=== PATIENT | male | born 1970 | race American Indian/Alaskan Native ===

== ENCOUNTER 2024-06-07 11:29 | Emergency (ER) | payer SELFPAY ==
[2024-06-07 11:31] VITALS: BP 120/78; PULSE 88; RESP 20; TEMP 36.8; O2SAT 90; BMI 22.3
--- NOTE | 2024-06-07 11:34 | ED.GENADULT ---
HPI - General Adult General Date Seen: 06/07/24 Chief complaint: Alcohol/Intoxication Stated complaint: ETOH Time Seen by Provider: 06/07/24 11:34 History of Present Illness HPI narrative: 53 yo M with h/o alcohol abuse, history of liver cirrhosis due to alcohol dependence, chronic hepatitis-C. And looks like his primary care provider is Dr. Cobb in the [facility] system. However most recent visit with her was over 2 years ago in March 2022. According to that no he at that time he was living in [facility] for alcohol dependence. Note indicates that he has cirrhosis and had been hospitalized somewhere in [place] in 2023 compensated cirrhosis with ascites requiring paracentesis. During that hospitalization he had an EGD that showed esophagitis and portal hypertensive gastropathy. In the past he had been on Lasix and spironolactone so he was restarted on Lasix and spironolactone after that visit in 2021. Lasix 20 mg every morning and spironolactone 25 mg every morning. Also omeprazole 20 mg every morning for gastritis. History per patient and from his alcohol treatment center staff is that he did go through treatment about 2 years ago. It sounds like his sobriety did not loss very long after treatment and has been drinking fairly heavily for 2 years since then. He initially says he drinks 1 pt of alcohol per day. Then when I asked again he does report somewhere between 2 and 3 pt per day. He has been drinking every day for the past couple of years. He is not taking his meds. He does want to stop and he called of his own accord last week. He went through an assessment last and was accepted for inpatient alcohol treatment to start today. He has been drinking heavily since then and actually was drinking up until 10:00 a.m. this morning, right before he went to treatment. When he arrived treatment he seemed confused and intoxicated. He apparently has had serious alcohol withdrawal in the past. He was hospitalized several years ago for for 5 days with what sounds like may have been delirium tremens. He was reporting significant hallucinations at that time. It does not sound like he has ever had alcohol withdrawal seizures. With concerned that he may develop serious withdrawal, his treatment program staff brought him here to the ER. He does not have any recent falls. No fever. No abdominal pain. He gets nauseous sometimes but is not currently nauseous. No swelling in his legs. Related Data Home Medications ?Medication ?Instructions ?Recorded ?Confirmed albuterol 90 mcg/actuation aerosol mcg inhalation 06/07/24 inhaler buspirone 15 mg tablet 15 mg PO BID 06/07/24 06/07/24 cetirizine 10 mg capsule (All Day 10 mg PO DAILY PRN 06/07/24 06/07/24 Allergy (cetirizine)) hydroxyzine HCl 25 mg tablet 25 mg PO Q6-8H PRN 06/07/24 06/07/24 Allergies Allergy/AdvReac Type Severity Reaction Status Date / Time No Known Drug Allergies Allergy Verified 06/07/24 11:36 Exam Narrative: Exam Narrative: Constitutional: Appears well-developed and well-nourished. He is awake and answers questions. Speech is very slurred and I have to ask him to repeat himself sometimes because it is difficult to understand him. He is rocking back gotten forth on the bed in behavior consistent with alcohol intoxication. HENT: Head: Atraumatic. Nose: Nose normal. Mouth/Throat: Oral mucosa is clear and moist. no trismus. Eyes: Conjunctivae normal. EOM normal. Pupils equal, round, and reactive to light. No scleral icterus. Neck: Normal range of motion. Neck supple. No tracheal deviation present. Cardiovascular: Normal rate, regular rhythm. No gallop. No friction rub. No murmur heard. Symmetric radial and PT artery pulses Pulmonary/Chest: Effort normal. No stridor. No respiratory distress. No wheezes. No rales. No rhonchi . No tenderness. Abdominal: Soft. Bowel sounds normal. No distension. No mass. No tenderness. No rebound. No guarding. No palpable hepatomegaly. Musculoskeletal: RUE: Normal range of motion. No tenderness. No deformity LUE: Normal range of motion. No tenderness. No deformity RLE: Normal range of motion. No edema. No tenderness. No deformity LLE: Normal range of motion. No edema. No tenderness. No deformity Neurological: Alert and oriented to person, place, and time. Normal strength. CN II-VII intact. No sensory deficit. GCS eye subscore is 4. GCS verbal subscore is 5. GCS motor subscore is 6. Normal coordination Skin: Skin is warm and dry. No rash noted. No pallor. Normal capillary refill. Psychiatric: Slurring speech. Consistent with alcohol intoxication. He endorses heavy alcohol consumption every day for the past couple of years. He did call last week to set himself up for alcohol treatment was entered into that program today. However has been drinking heavily up until 10:00 a.m. this morning. He does want to quit drinking. He was seeking treatment of his own accord. When he has gone through withdrawal in the past he apparently did have significant hallucinations and was seeing things crawling around on the lopez. He is not current having any new auditory or visual hallucinations. No visual hallucinations. No thoughts of self-harm. He sometimes smokes marijuana. No other drugs. Const: Vital Signs, click to edit/add: Vital Signs - 24 hr 06/07/24 11:31 06/07/24 13:30 06/07/24 13:35 Temperature 98.2 F Pulse Rate [Pulse Oximeter] 88 85 86 Respiratory Rate 20 20 Blood Pressure [Ri t Upper Arm] 120/78 Pulse Oximetry 90 98 98 Oxygen Delivery Me thod Room Air Room Air Course Vital Signs Vital signs: Initial Vital Signs Temperature 98.2 F 06/07/24 11:31 Temperature Source Temporal Artery Scan 06/07/24 11:31 Pulse Rate 88 06/07/24 11:31 Respiratory Rate 20 06/07/24 11:31 Blood Pressure 120/78 06/07/24 11:31 Blood Pressure Mean 92 06/07/24 11:31 Blood Pressure Position Sitting 06/07/24 11:31 Pulse Oximetry 90 06/07/24 11:31 Oxygen Delivery Method Room Air 06/07/24 11:31 Vital Signs Temperature 98.2 F 06/07/24 11:31 Pulse Rate 88 06/07/24 11:31 Respiratory Rate 20 06/07/24 11:31 Blood Pressure 120/78 06/07/24 11:31 Pulse Oximetry 90 06/07/24 11:31 Oxygen Delivery Method Room Air 06/07/24 11:31 Temperature 98.2 F 06/07/24 11:31 Pulse Rate 86 06/07/24 13:35 Respiratory Rate 20 06/07/24 13:30 Blood Pressure 120/78 06/07/24 11:31 Pulse Oximetry 98 06/07/24 13:35 Oxygen Delivery Method Room Air 06/07/24 13:35 Medications Administered Medications: Discontinued Medications Generic Name Dose Route Start Last Admin Trade Name Darlyn PREarl Reason Stop Dose Admin Folic Acid 1 mg 06/07/24 12:08 06/07/24 12:21 Folic Acid 1 Mg Tablet PO 06/07/24 12:09 1 mg ONCE ONE Administration Thiamine HCl 100 mg 06/07/24 12:08 06/07/24 12:21 Thiamine 100 Mg Tablet PO 06/07/24 12:09 100 mg ONCE ONE Administration Medical Decision Making MDM Narrative Medical decision making narrative: 53-year-old male with a history of significant alcohol abuse in the past presents to the ER today. He is here with his alcohol treatment center staff and was supposed to have entered into alcohol treatment beginning this morning. However when he arrives for treatment he was intoxicated with alcohol. His treatment staff have concerned that he may be in the early stages of alcohol withdrawal. By my clinical exam he appears to be intoxicated with alcohol. No tachycardia, tremor, or other signs of withdrawal at this point. Laboratory workup does confirm an alcohol level of 0.32 which fits with his reported history of heavy alcohol consumption up until 10:00 a.m. this morning. At this point I do not think he is actively in withdrawal but also do was still drinking up until a couple of hours prior to presentation. Certainly would be at risk to develop alcohol withdrawal over the next hours or days. In the absence of active alcohol withdrawal, seizures, hallucinations, or delirium tremens, I do not have grounds to qualify him for hospitalization. Therefore options would be to try to manage him in his treatment center with low benzodiazepines to prevent/treat withdrawal or look at transferring him to a detox center. He and his staff would prefer that he go to detox. We consulted with [facility], in [place].[] Laboratory workup shows normal CBC, normal hemoglobin, normal platelet count. Electrolytes and sodium are normal. Magnesium normal. Potassium normal. LFTs are mildly abnormal with an AST of 88 and ALT of 55. Bilirubin is normal at 0.6. Total protein is normal. INR is normal at 1.06. Although he has a history of cirrhosis, at this point no signs of any severe hepatitis. No need for hospitalization for liver monitoring. At this point no clear indication that he needs inpatient GI consultation or emergent liver transplant. Per his report he apparently had a doctor [facility] who was going to set him up with the GI doctor. I think it is important for him to follow up outpatient with GI, but at this point no indication for inpatient admission. Were able to arrange a plan for him to go to the detox facility at [facility] where he can be monitored while he nato up from alcohol and watch for signs of involving alcohol withdrawal. His treatment center provider will take him there.. Lab Data Labs: Lab Results 06/07/24 Range/Units 12:20 WBC 8.25 (4.50-11.00) K/uL RBC 4.56 (4.30-5.90) m/uL Hgb 14.5 (13.5-17.5) gm/dL Hct 44.2 (37.0-53.0) % MCV 97 (80-100) fL MCH 32 (26-34) pg MCHC 33 (32-36) gm/dL RDW Coeff of Srinivasa 14.4 (11.5-15.5) % Plt Count 185 (140-440) K/uL Neut % (Auto) 65.7 (42.0-72.0) % Lymph % (Auto) 27.3 (20-44) % [place] % (Auto) 4.7 (0.0-11.0) % Eos % (Auto) 1.1 (0.0-7.0) % Baso % (Auto) 1.1 (0.0-3.0) % Neut # (Auto) 5.42 (1.7-7.0) K/uL Lymph # (Auto) 2.25 (0.90-2.90) K/uL [place] # (Auto) 0.40 (0.00-0.90) K/UL Eos # (Auto) 0.09 (0.00-0.50) K/uL Baso # (Auto) 0.09 (0.00-0.30) K/uL Abs Immat Gran (auto) 0.01 (0.00-0.30) K/uL Imm/Tot Granulo (auto) 0.1 % INR 1.06 (0.91-1.10) Sodium 145 (135-149) mmol/L Potassium 3.9 (3.6-5.1) mmol/L Chloride 111 (96-114) mmol/L Carbon Dioxide 26 (20-32) mmol/L Anion Gap 8 (7-15) mEq/L BUN 7 (7-30) mg/dL Creatinine 0.7 (0.5-1.5) mg/dL Estimated Creat Clear 122.40 Estimated GFR 109 ml/min Glucose 128 H (60-115) mg/dL Calcium 8.6 (8.4-10.6) mg/dL Magnesium 2.2 (1.5-2.6) mg/dL Total Bilirubin 0.6 (0.1-1.5) mg/dL AST 88 H (12-35) U/L ALT 58 H (4-50) U/L Alkaline Phosphatase 137 (40-150) U/L Total Protein 7.6 (6.0-8.3) g/dL Albumin 4.0 (3.3-5.0) g/dL Lipase 64 (23-300) U/L Ethyl Alcohol 0.32 H* (0.01-0.03) % Discharge Plan Discharge Clinical Impression: Alcoholic intoxication Patient Disposition: Home, Self-Care Condition: Stable Additional Instructions: Please go directly to the [facility] detox center in [place]. You can check into the [facility] detox and they can monitor you to see if you develop any signs of alcohol withdrawal. Prescriptions: No Action hydroxyzine HCl 25 mg tablet 25 mg PO Q6-8H PRN buspirone 15 mg tablet 15 mg PO BID All Day Allergy (cetirizine) 10 mg capsule 10 mg PO DAILY PRN albuterol 90 mcg/actuation aerosol inhalation Follow Up/Referrals: Provider,Not a Local [Primary Care Provider] - Stand Alone Forms: [employer] Info Instructions
[2024-06-07] MEDS: FOLIC ACID 1 MG TABLET PO (12:21)
[2024-06-07] MEDS: THIAMINE 100 MG TABLET PO (12:21)
[2024-06-07 12:33] LABS: Basophils Absolute Auto 0.09 K/uL (0.00-0.30); Basophils Percent Auto 1.1 % (0.0-3.0); Eosinophils Absolute Auto 0.09 K/uL (0.00-0.50); Eosinophils Percent Auto 1.1 % (0.0-7.0); Hematocrit 44.2 % (37.0-53.0); Hemoglobin* 14.5 gm/dL (13.5-17.5); Immature Granulocytes Abs Auto 0.01 K/uL (0.00-0.30); Immature Granulocytes Pct Auto 0.1 %; Lymphocytes Absolute Auto 2.25 K/uL (0.90-2.90); Lymphocytes Percent Auto 27.3 % (20-44); Mean Corpuscular HGB Conc 33 gm/dL (32-36); Mean Corpuscular Hemoglobin 32 pg (26-34); Mean Corpuscular Volume 97 fL (80-100); Monocytes Percent Auto 4.7 % (0.0-11.0); Neutrophils Absolute Auto 5.42 K/uL (1.7-7.0); Neutrophils Percent Auto 65.7 % (42.0-72.0); Platelet Count* 185 K/uL (140-440); RDW Coefficient of Variation % 14.4 % (11.5-15.5); Red Blood Count 4.56 m/uL (4.30-5.90); White Blood Count* 8.25 K/uL (4.50-11.00)
[2024-06-07 12:37] LABS: Chloride* 111 mmol/L (96-114); INR 1.06 (0.91-1.10); Potassium* 3.9 mmol/L (3.6-5.1); Prothrombin Time 14.4 Seconds; Sodium* 145 mmol/L (135-149)
[2024-06-07 12:39] LABS: Alkaline Phosphatase* 137 U/L (40-150); Anion Gap 8 mEq/L (7-15); Aspartate Amino Transferase* 88 U/L (12-35); Bilirubin Total* 0.6 mg/dL (0.1-1.5); Blood Urea Nitrogen* 7 mg/dL (7-30); Carbon Dioxide* 26 mmol/L (20-32); Creatinine* 0.7 mg/dL (0.5-1.5); Estimated Glomerular Filt Rate 109 ml/min; Glucose* 128 mg/dL (60-115); Slide Review Reflex No; Total Protein* 7.6 g/dL (6.0-8.3)
[2024-06-07 12:40] LABS: Alanine Aminotransferase* 58 U/L (4-50); Calcium* 8.6 mg/dL (8.4-10.6); Lipase* 64 U/L (23-300); Magnesium* 2.2 mg/dL (1.5-2.6)
[2024-06-07 12:50] LABS: Ethanol* 0.32 % (0.01-0.03)
[2024-06-07 13:30] VITALS: PULSE 85; RESP 20; O2SAT 98
[2024-06-07 13:35] VITALS: PULSE 86; O2SAT 98
== END 2024-06-07 14:36 | disposition home or self-care (01) ==
PROVIDERS: Emergency Provider Emergency Medicine
DX: F10.129 Alcohol abuse with intoxication, unspecified (principal)
CPT/HCPCS: 36415; 80053; 82077; 83690; 83735; 85025; 85610; 99283; A9270

== ENCOUNTER 2024-06-14 13:49 | Emergency (ER) | payer SELFPAY ==
[2024-06-14 14:06] VITALS: BP 130/76; PULSE 99; RESP 18; TEMP 37.1; O2SAT 98; BMI 21.2
--- NOTE | 2024-06-14 15:19 | CRLHL7_ITS ---
For Patients: As a result of the Cures Act, medical imaging exams and procedure reports are released immediately into your electronic medical record. You may view this report before your referring provider. If you have questions, please contact your health care provider. INDICATION: Fall. Pain. TECHNIQUE: Lumbar spine three views. COMPARISON: None. FINDINGS: Mild multilevel degenerative changes of the lumbar spine. Mild compression deformity of the T12 vertebra appears chronic in nature. No radiographic evidence of acute fracture. No additional osseous abnormality. Paraspinal soft tissues as imaged are unremarkable. Right upper quadrant surgical clips. IMPRESSION: 1. Mild lumbar degenerative changes. 2. Mild chronic appearing compression fracture of the T12 vertebra. No radiographic evidence of acute fracture. Dictated by Salomón Wheeler MD @ 06/14/2024 4:27:31 PM (Electronically Signed)
--- NOTE | 2024-06-14 15:21 | ED.GENADULT ---
HPI - General Adult General Chief complaint: Fall/Minor Trauma Stated complaint: fall in shower/back pain Time Seen by Provider: 06/14/24 14:58 History of Present Illness HPI narrative: In this 53-year-old male comes in reporting low back pain after a fall that occurred yesterday. He slipped in the tub or shower and fell and has pain in his low back region. The pain does not radiate down either leg. He did present to Urgent Care yesterday and no imaging was done at the time. He did receive a prescription for medicine that he has not yet received as he is in a treatment program for substance abuse. He comes in here complaining of worsening pain. He is able to ambulate and does arrive with normal vital signs. He does not report any other injury. He did not hit his head or have loss of consciousness. Related Data Home Medications ?Medication ?Instructions ?Recorded ?Confirmed albuterol 90 mcg/actuation aerosol mcg inhalation 06/07/24 06/13/24 inhaler buspirone 15 mg tablet 15 mg PO BID 06/07/24 06/13/24 cetirizine 10 mg capsule (All Day 10 mg PO DAILY PRN 06/07/24 06/13/24 Allergy (cetirizine)) hydroxyzine HCl 25 mg tablet 25 mg PO Q6-8H PRN 06/07/24 06/13/24 Previous Rx's ?Medication ?Instructions ?Recorded methocarbamol 1,000 mg tablet 1,000 mg PO TID 2 weeks #42 tabs 06/13/24 naproxen 250 mg tablet See Rx Instructions PO BID #60 tabs 06/13/24 cyclobenzaprine 10 mg tablet 10 mg PO TID #15 tabs 06/14/24 ketorolac 10 mg tablet 10 mg PO Q8H 5 days #15 tabs 06/14/24 Allergies Allergy/AdvReac Type Severity Reaction Status Date / Time No Known Drug Allergies Allergy Verified 06/13/24 11:33 Review of Systems Status of ROS: Reports: 10 or more systems reviewed and unremarkable except as noted in History and below Narrative: Constitutional: No fevers, no weight gain or loss. Eyes: No discharge. No vision changes. HENT: No congestion, no sore throat, no ear pain. Cardiovascular: No chest pain, no palpitations. Respiratory: No shortness of breath, no wheezes, no cough. Gastrointestinal: No abdominal pain, no vomiting, no diarrhea. Genitourinary: No dysuria, no hematuria. Musculoskeletal: Normal range of motion. Skin: No rashes, no pruritis. Neurological: No dizziness, weakness, sensory change, speech change. Endo/Heme/Allergies: No bruising or bleeding. No polydipsia. Pysch: no suicidality, no anxiety, no insomnia. All other systems reviewed and are negative. PFSH PFSH Social History Smoking Status: Current every day smoker Do you use any of these nicotine containing products: None Second hand tobacco smoke exposure: No How often do you have a drink containing alcohol: 4 or more times a week How many standard drinks containing alcohol do you have on a typical day: 10 or more How often do you have six or more drinks on one occasion: Daily or almost daily AUDIT-C Alcohol total score: 12 Non-prescribed substance use: denies use service: No Exam Narrative: Exam Narrative: Constitutional: Well-developed, well-nourished, no acute distress. HEENT: Normocephalic, atraumatic. Neck: Normal range of motion. Nontender. Supple. Heart: Regular. No murmurs. Normal rate. Intact distal pulses. Lungs: Clear to auscultation. No chest discomfort. No wheezes, rhonchi, or rales. Abdomen: Normal bowel sounds. Nontender. No rebound tenderness. Genitalia: Deferred. Back: Diffuse low back pain without radiation. Extremities: Normal range of motion. No injury. Skin: Intact. No rash. Warm. No erythema or pallor. Neurologic: No altered sensation. No weakness. Alert and oriented. Psychiatric: No suicidality. No anxiety or depression. No insomnia. Nursing notes and vitals signs are reviewed. Const: Vital Signs, click to edit/add: Vital Signs - 24 hr 06/14/24 14:06 Temperature 98.7 F Pulse Rate [Pulse Oximeter] 99 Respiratory Rate 18 Blood Pressure [Ri ght Upper Arm] 130/76 Pulse Oximetry 98 Oxygen Delivery Me thod Room Air Course Vital Signs Vital signs: Initial Vital Signs Temperature 98.7 F 06/14/24 14:06 Temperature Source Temporal Artery Scan 06/14/24 14:06 Pulse Rate 99 06/14/24 14:06 Respiratory Rate 18 06/14/24 14:06 Blood Pressure 130/76 06/14/24 14:06 Blood Pressure Mean 94 06/14/24 14:06 Pulse Oximetry 98 06/14/24 14:06 Oxygen Delivery Method Room Air 06/14/24 14:06 Vital Signs Temperature 98.7 F 06/14/24 14:06 Pulse Rate 99 06/14/24 14:06 Respiratory Rate 18 06/14/24 14:06 Blood Pressure 130/76 06/14/24 14:06 Pulse Oximetry 98 06/14/24 14:06 Oxygen Delivery Method Room Air 06/14/24 14:06 Temperature 98.7 F 06/14/24 14:06 Pulse Rate 99 06/14/24 14:06 Respiratory Rate 18 06/14/24 14:06 Blood Pressure 130/76 06/14/24 14:06 Pulse Oximetry 98 06/14/24 14:06 Oxygen Delivery Method Room Air 06/14/24 14:06 Medications Administered Medications: Discontinued Medications Generic Name Dose Route Start Last Admin Trade Name Juancarlosq PRN Reason Stop Dose Admin Dexamethasone 10 mg 06/14/24 15:20 06/14/24 15:31 Dexamethasone 10 Mg/Ml Inj PO 06/14/24 15:21 10 mg ONCE ONE Administration Ketorolac Tromethamine 30 mg 06/14/24 15:20 06/14/24 15:30 Ketorolac 30 Mg/Ml Inj IM 06/14/24 15:21 30 mg ONCE ONE Administration Medical Decision Making MDM Narrative Medical decision making narrative: This patient is currently in a treatment program for substance abuse and comes in because of pain in his low back from a fall that occurred yesterday. He I did obtain an x-ray of the lumbar spine which shows no acute findings. He does have a mild compression fracture that is old. The patient did receive an intramuscular injection of Toradol. He is okay to return back to his treatment program. I did provide prescriptions for Toradol and Flexeril. Discharge Plan Discharge Clinical Impression: Lumbar back pain Patient Disposition: Home, Self-Care Condition: Stable Additional Instructions: Take medication as needed and indicated. Increase activity as tolerated. Follow up with MD return if worsening. Prescriptions: New cyclobenzaprine 10 mg tablet 10 mg PO TID Qty: 15 0RF ketorolac 10 mg tablet 10 mg PO Q8H 5 Days Qty: 15 0RF No Action naproxen 250 mg tablet See Rx Instructions PO BID Qty: 60 0RF Rx Instructions: Take two tablets by mouth twice daily for the next 3-5 days. Take one tablet by mouth twice daily for the next 3-5 days. Take one tablet by mouth twice daily as needed thereafter. methocarbamol 1,000 mg tablet 1,000 mg PO TID 14 Days Qty: 42 0RF hydroxyzine HCl 25 mg tablet 25 mg PO Q6-8H PRN buspirone 15 mg tablet 15 mg PO BID All Day Allergy (cetirizine) 10 mg capsule 10 mg PO DAILY PRN albuterol 90 mcg/actuation aerosol inhalation Follow Up/Referrals: Provider,Not a Local [Primary Care Provider] - Stand Alone Forms: [employer] Info Instructions
[2024-06-14] MEDS: KETOROLAC 30 MG/ML inj IM (15:30)
[2024-06-14] MEDS: dexAMETHasone 10 MG/ML inj PO (15:31)
[2024-06-14 16:56] VITALS: BP 126/86; PULSE 74; RESP 16
== END 2024-06-14 16:57 | disposition home or self-care (01) ==
PROVIDERS: Emergency Provider Emergency Medicine Emergency Medical Services
DX: M54.50 Low back pain, unspecified (principal); W18.2XXA Fall in (into) shower or empty bathtub, initial encounter
CPT/HCPCS: 72100; 96372; 99283; 99284; J1100; J1885